=== PATIENT | female | born 1995 | race Caucasian/White ===

== ENCOUNTER 2017-03-26 07:35 | Inpatient (IN) | payer OTHER ==
[~2017-03-26] VITALS: Ht 167.6 cm; Wt 61.2 kg
[2017-03-27 15:00] VITALS: BP 117/70
[2017-03-27] MEDS ORDERED: PRAZ2CAP2 PO (15:00)
[2017-03-27] MEDS ORDERED: BUPR-51 PO (15:01)
[2017-03-27] MEDS ORDERED: PROP10TA10 PO (15:02)
[2017-03-27] MEDS ORDERED: HYDR50CA PO (15:03)
[2017-03-27] MEDS ORDERED: QUET100T PO (15:04)
[2017-03-27 16:00] VITALS: BP 99/53
[2017-03-27] MEDS ORDERED: MAGNESIUM HYDROXIDE 30 ML LIQUID UDC PO PRN (17:00)
[2017-03-27] MEDS ORDERED: ONDANSETRON ODT 4 MG TAB.RAPDIS SL PRN (17:00)
[2017-03-27] MEDS ORDERED: HYDROXYZINE PAMOATE 25 MG CAPSULE PO PRN (17:00)
[2017-03-27] MEDS ORDERED: MIRALAX 17 GM POWD.PACK PO PRN (17:00)
[2017-03-27] MEDS ORDERED: ONDANSETRON 4 MG/2 ML VIAL IM PRN (17:00)
[2017-03-27] MEDS ORDERED: METHOCARBAMOL 750 MG TABLET PO PRN (17:00)
[2017-03-27] MEDS ORDERED: CLONIDINE HCL 0.1 MG TABLET PO PRN (17:00)
[2017-03-27] MEDS ORDERED: DICYCLOMINE HCL 20 MG TABLET PO PRN (17:00)
[2017-03-27] MEDS ORDERED: ACETAMINOPHEN 325 MG TABLET PO PRN (17:00)
[2017-03-27] MEDS ORDERED: LOPERAMIDE HCL 2 MG CAPSULE PO PRN ×2 (17:00)
[2017-03-27] MEDS ORDERED: PROPRANOLOL HCL 10 MG TABLET PO SCH (17:00)
[2017-03-27] MEDS ORDERED: MAG HYDROX/AL HYDROX/SIMETH 30 ML LIQUID UDC PO PRN (17:00)
[2017-03-27] MEDS ORDERED: BUPRENORPHINE HCL 2 MG TAB.SUBL SL PRN (17:00)
[2017-03-27] MEDS ORDERED: diphenhydrAMINE 50 MG CAPSULE PO PRN (17:00)
[2017-03-27] MEDS ORDERED: IBUPROFEN 600 MG TABLET PO PRN (17:00)
[2017-03-27 20:00] VITALS: BP 105/61
[2017-03-27] MEDS ORDERED: QUETIAPINE FUMARATE 100 MG TABLET PO ONE (21:00)
[2017-03-27 21:59] LABS: BASOPHILS % (AUTO) 0.6 % (0.0-2.0); EOSINOPHILS # (AUTO) 0.2 K/uL (0.0-0.7); HEMATOCRIT 36.1 % (37-47); HEMOGLOBIN 12.3 G/DL (12.0-16.0); LYMPHOCYTES # (AUTO) 2.5 K/UL (0.8-4.8); LYMPHOCYTES % (AUTO) 30.9 % (20.5-74.5); MEAN CORPUSCULAR HGB CONC 34 g/dL (32.0-37.0); MONOCYTES % (AUTO) 12.9 % (0-11); NEUTROPHILS # (AUTO) 4.3 K/UL (1.8-8.9); NEUTROPHILS % (AUTO) 53.6 % (31.5-64.5); PLATELET COUNT (AUTO) 303 K/UL (150-450); RED BLOOD CELL COUNT(AUTO) 4.24 MIL/UL (4.2-5.4)
[2017-03-27 22:04] LABS: *URINE HCG, QUAL NEGATIVE (NEGATIVE)
[2017-03-27 22:25] LABS: ALANINE AMINOTRANSFERASE 16 U/L (14-59); ALKALINE PHOSPHATASE 86 U/L (50-136); ASPARTATE AMINOTRANSFERASE 21 U/L (15-37); BILIRUBIN,TOTAL 0.5 mg/dL (0.2-1.0); CARBON DIOXIDE 27 mmol/L (21-32); CHLORIDE 102 mmol/L (98-107); CREATININE 0.6 mg/dL (0.6-1.3); GLUCOSE 75 mg/dL (74-106); POTASSIUM 3.3 mmol/L (3.5-5.1); TOTAL PROTEIN, SERUM 7.2 g/dL (6.4-8.2); UREA NITROGEN, BLOOD 12 mg/dL (7-18)
[2017-03-27 22:29] LABS: ETHANOL < 3 MG/DL (0-0)
[2017-03-27 22:32] LABS: THYROID STIMULATING HORMONE 0.745 mIU/mL (0.358-3.740)
[2017-03-28] VITALS: BP 95/55
[2017-03-28 04:00] VITALS: BP 101/62
[2017-03-28] MEDS ORDERED: PROPRANOLOL HCL 10 MG TABLET PO SCH (07:39)
[2017-03-28 08:00] VITALS: BP 122/68
[2017-03-28 08:38] LABS: *AMPHETAMINE, URINE POSITIVE (NEGATIVE); *BARBITURATE, URINE NEGATIVE (NEGATIVE); *CANNABINOID, URINE NEGATIVE (NEGATIVE); *COCCAINE, URINE NEGATIVE (NEGATIVE); *OPIATE, URINE POSITIVE (NEGATIVE); *PHENCYCLIDINE SCREEN,URINE NEGATIVE (NEGATIVE)
[2017-03-28] MEDS ORDERED: POTASSIUM CHLORIDE 20 MEQ TAB.PRT.SR PO ONE (09:00)
[2017-03-28] MEDS ORDERED: TUBERCULIN,PURIF.PROT.DERIV. 5 TU/0.1 ML TEST ID ONE ×2 (09:00→10:03)
[2017-03-28] MEDS ORDERED: 4 DAY TAPER BUPRENORPHINE -SERENITY PROTOCOL SL PRN (09:00)
[2017-03-28] MEDS ORDERED: MULTIVITAMINS,THERAPEUTIC TABLET ONE (10:02)
[2017-03-28] MEDS ORDERED: DOCUSATE SODIUM 250 MG CAPSULE PO ONE (10:02)
[2017-03-28] MEDS ORDERED: POTASSIUM CHLORIDE 20 MEQ TAB.PRT.SR ONE (10:02)
[2017-03-28] MEDS ORDERED: BUPRENORPHINE HCL 2 MG TAB.SUBL SL ONE ×2 (10:02→14:09)
[2017-03-28] MEDS ORDERED: PROPRANOLOL HCL 10 MG TABLET ONE ×2 (10:03→14:09)
[2017-03-28] MEDS: PROPRANOLOL HCL 10 MG TABLET PO SCH ×3 (10:21→22:39)
[2017-03-28] MEDS: DOCUSATE SODIUM 250 MG CAPSULE PO SCH (10:21)
[2017-03-28] MEDS: MULTIVITAMINS,THERAPEUTIC TABLET PO SCH (10:21)
[2017-03-28] MEDS: BUPRENORPHINE HCL 2 MG TAB.SUBL SL SCH ×3 (10:22→21:01)
[2017-03-28 12:00] VITALS: BP 105/64
[2017-03-28 16:00] VITALS: BP 116/44
[2017-03-28] MEDS: DULOXETINE 60 MG CAPSULE.DR PO SCH (17:11)
[2017-03-28 20:00] VITALS: BP 107/64
[2017-03-28] MEDS: QUETIAPINE FUMARATE 100 MG TABLET PO SCH (21:00)
[2017-03-29] VITALS: BP 112/69
[2017-03-29] MEDS: PROPRANOLOL HCL 10 MG TABLET PO SCH ×3 (06:49→21:58)
[2017-03-29 08:00] VITALS: BP 102/63
[2017-03-29] MEDS: MULTIVITAMINS,THERAPEUTIC TABLET PO SCH (08:34)
[2017-03-29] MEDS: DOCUSATE SODIUM 250 MG CAPSULE PO SCH (08:34)
[2017-03-29] MEDS: DULOXETINE 60 MG CAPSULE.DR PO SCH (08:35)
[2017-03-29] MEDS ORDERED: BUPRENORPHINE HCL 2 MG TAB.SUBL SL SCH (09:00)
[2017-03-29 12:00] VITALS: BP 105/67
[2017-03-29 13:09] LABS: HEPATITIS B SURFACE AG Negative (Negative)
[2017-03-29] MEDS: BUPRENORPHINE HCL 2 MG TAB.SUBL SL SCH ×2 (14:00→21:59)
[2017-03-29 16:00] VITALS: BP 132/83
[2017-03-29 20:00] VITALS: BP 126/78
[2017-03-29] MEDS: QUETIAPINE FUMARATE 100 MG TABLET PO SCH (21:59)
[2017-03-30] VITALS: BP 101/55
[2017-03-30 04:00] VITALS: BP 92/60
[2017-03-30] MEDS: PROPRANOLOL HCL 10 MG TABLET PO SCH ×3 (06:00→21:12)
[2017-03-30 08:00] VITALS: BP 94/62
[2017-03-30] MEDS: BUPRENORPHINE HCL 2 MG TAB.SUBL SL SCH ×3 (08:26→21:05)
[2017-03-30] MEDS: DOCUSATE SODIUM 250 MG CAPSULE PO SCH (08:26)
[2017-03-30] MEDS: DULOXETINE 60 MG CAPSULE.DR PO SCH (08:26)
[2017-03-30] MEDS: MULTIVITAMINS,THERAPEUTIC TABLET PO SCH (08:26)
[2017-03-30 12:00] VITALS: BP 100/58
[2017-03-30 16:00] VITALS: BP 109/73
[2017-03-30 20:00] VITALS: BP 105/57
[2017-03-30] MEDS: PRAZOSIN HCL 1 MG CAPSULE PO SCH (21:04)
[2017-03-30] MEDS: QUETIAPINE FUMARATE 100 MG TABLET PO SCH (21:11)
[2017-03-31] VITALS: BP 98/62
[2017-03-31 04:00] VITALS: BP 103/61
[2017-03-31] MEDS: PROPRANOLOL HCL 10 MG TABLET PO SCH ×3 (06:00→21:33)
[2017-03-31 08:00] VITALS: BP 91/52
[2017-03-31] MEDS ORDERED: BUPRENORPHINE HCL 2 MG TAB.SUBL SL SCH (09:00)
[2017-03-31] MEDS: DOCUSATE SODIUM 250 MG CAPSULE PO SCH (10:18)
[2017-03-31] MEDS: MULTIVITAMINS,THERAPEUTIC TABLET PO SCH (10:20)
[2017-03-31] MEDS: DULOXETINE 60 MG CAPSULE.DR PO SCH (10:20)
[2017-03-31] MEDS ORDERED: NICOTINE POLACRILEX 4 MG GUM-PK OF TEN BC PRN (11:30)
[2017-03-31 12:00] VITALS: BP 94/61
[2017-03-31] MEDS ORDERED: CLON0.1T14 PO (12:32)
[2017-03-31] MEDS ORDERED: NICO4GUM38 BC (12:32)
[2017-03-31] MEDS ORDERED: METH-406 PO (12:32)
[2017-03-31] MEDS ORDERED: HYDR-3895 PO (12:32)
[2017-03-31] MEDS ORDERED: PRAZ1CAP2 PO (12:32)
[2017-03-31] MEDS ORDERED: PROP10TA29 PO (12:32)
[2017-03-31 16:00] VITALS: BP 112/69
[2017-03-31 19:37] LABS: *AMPHETAMINE, URINE NEGATIVE (NEGATIVE); *BARBITURATE, URINE NEGATIVE (NEGATIVE); *CANNABINOID, URINE NEGATIVE (NEGATIVE); *COCCAINE, URINE NEGATIVE (NEGATIVE); *OPIATE, URINE NEGATIVE (NEGATIVE); *PHENCYCLIDINE SCREEN,URINE NEGATIVE (NEGATIVE)
[2017-03-31 20:00] VITALS: BP 123/72
[2017-03-31] MEDS: PRAZOSIN HCL 1 MG CAPSULE PO SCH (21:35)
[2017-03-31] MEDS: QUETIAPINE FUMARATE 100 MG TABLET PO SCH (21:35)
[2017-04-01] MEDS: PROPRANOLOL HCL 10 MG TABLET PO SCH ×2 (06:00→13:47)
[2017-04-01 08:00] VITALS: BP 90/64
[2017-04-01] MEDS: DOCUSATE SODIUM 250 MG CAPSULE PO SCH (09:02)
[2017-04-01] MEDS: DULOXETINE 60 MG CAPSULE.DR PO SCH (09:02)
[2017-04-01] MEDS: MULTIVITAMINS,THERAPEUTIC TABLET PO SCH (09:02)
[2017-04-01 12:00] VITALS: BP 90/54
[2017-04-01 13:47] VITALS: BP 118/68
== END 2017-04-01 15:53 | disposition other institution (70) | DRG 895 ==
LOC: SRC 03-27 14:10
PROVIDERS: ADMIT Internal Medicine; ATTEND Internal Medicine
PROC: HZ2ZZZZ Detoxification Services for Substance Abuse Treatment (ICD-10-PCS; principal; 2017-03-27)
PROC: HZ41ZZZ Group Counseling for Substance Abuse Treatment, Behavioral (ICD-10-PCS; 2017-03-29)
PROC: HZ31ZZZ Individual Counseling for Substance Abuse Treatment, Behavioral (ICD-10-PCS; 2017-03-29)
DX: F11.23 Opioid dependence with withdrawal (principal); F33.1 Major depressive disorder, recurrent, moderate; F43.12 Post-traumatic stress disorder, chronic; X58.XXXS Exposure to other specified factors, sequela; Z62.810 Personal history of physical and sexual abuse in childhood; Z59.0 Homelessness; F15.10 Other stimulant abuse, uncomplicated; Z91.5 Personal history of self-harm; Z79.899 Other long term (current) drug therapy; E87.6 Hypokalemia; F17.210 Nicotine dependence, cigarettes, uncomplicated
CPT/HCPCS: 36415; 70030-TC; 80307; 80324; 80361; 83735; 84443; 84703; 85025; 86580; 86592; 86705; 86803; 87340; 87806; G0480; Q0162